=== PATIENT | male | born 1965 | race Caucasian/White ===

== ENCOUNTER → 2018-01-26 | Outpatient (CLI) | payer OTHER ==
[~2018-01-26] MED LIST: ACE3 PO; DOCU-416 PO; LISI-362 PO; MULT1TAB54 PO; OMEG300C PO; PHEN200T32 PO; POTA99TA6 PO; PREG100C44 PO
== END ==
LOC: RESP 19:25
PROVIDERS: ATTEND Nurse Practitioner Family
DX: G47.33 Obstructive sleep apnea (adult) (pediatric) (principal); G47.61 Periodic limb movement disorder; G47.36 Sleep related hypoventilation in conditions classified elsewhere